=== PATIENT | female | born 1995 | race Asian ===

== ENCOUNTER 2017-06-14 22:00 | Observation (INO) | payer OTHER ==
[2017-06-15] MEDS ORDERED: NS 0.9% 1000 ML* 1,000 ML IV ONE (00:17)
[2017-06-15] MEDS ORDERED: Ondansetron INJ* 2 MG/ML VIAL IV ONE (00:17)
--- NOTE | 2017-06-15 00:27 | ED ---
Abdominal Pain/Female - HPI Summary HPI Summary: 22F w/ no PMH presents with epigastric pain and vomiting today. She states she has had pain before in this same location but it is more sharp in nature. She vomited three times with the last episode having some blood in it. She admits to nausea. She admits to a history of GERD but states feels different. She had chicken and rice for dinner at 5pm. She denies any blood in her stool. She denies any vaginal discharge, chest pain, SOB, dysuria, hematuria, flank pain, urgency, frequency, constipation or diarrhea. She denies any fevers. She did not eat anything out of the ordinary today. She denies any previous abdominal surgeries. She is on control. She has no medical conditions. last meal at 5pm. - History of Current Complaint Chief Complaint: EDNauseaVomitDiarrh Stated Complaint: BLOOD IN VOMIT Time Seen by Provider: 06/14/17 23:56 Pain Intensity: 8 Allergies/Adverse Reactions: Allergies Allergy/AdvReac Type Severity Reaction Status Date / Time Benzoyl Peroxide Allergy Intermediate Rash Verified 06/14/17 22:04 PMH/Surg Hx/FS Hx/Imm Hx Endocrine/Hematology History: Denies: Hx Anticoagulant Therapy Cardiovascular History: Denies: Hx Hypertension Infectious Disease History: No Infectious Disease History: Denies: Traveled Outside the [place] in Last 30 Days - Family History Known Family History: Positive: Other - IBS - Social History Alcohol Use: Occasionally Substance Use Type: Reports: None Smoking Status (MU): Never Smoked Tobacco Review of Systems Negative: Fever Negative: Chest Pain Negative: Shortness Of Breath Positive: Abdominal Pain - epigastric, Vomiting, Nausea. Negative: Diarrhea All Other Systems Reviewed And Are Negative: Yes Physical Exam Triage Information Reviewed: Yes Vital Signs On Initial Exam: Initial Vitals Temp Pulse Resp BP Pulse Ox 97.3 F 91 14 114/59 100 06/14/17 22:02 06/14/17 22:02 06/14/17 22:02 06/14/17 22:02 06/14/17 22:02 Vital Signs Reviewed: Yes Appearance: Positive: Well-Appearing Skin: Positive: Warm, Dry Head/Face: Positive: Normal Head/Face Inspection Eyes: Positive: Normal, EOMI, ANGUS, Conjunctiva Clear ENT: Positive: Normal ENT inspection, Pharynx normal, TMs normal Respiratory/Lung Sounds: Positive: Clear to Auscultation, Breath Sounds Present Cardiovascular: Positive: Normal, RRR Abdomen Description: Positive: Soft, Other: - tenderness epigastric region, neg pearson. Negative: CVA Tenderness (R), CVA Tenderness (L) Bowel Sounds: Positive: Present - [place] Coma Scale Coma Scale Total: 15 Diagnostics - Vital Signs Vital Signs Temp Pulse Resp BP Pulse Ox 06/14/17 23:59 86 100 06/14/17 22:02 97.3 F 91 14 114/59 100 - Laboratory Result Diagrams: 06/15/17 00:40 06/15/17 00:40 Lab Statement: Any lab studies that have been ordered have been reviewed, and results considered in the medical decision making process. - Ultrasound No standard instances Ultrasound Interpretation: Positive (See Comments) - cholelithiasis, sludge, thickened gallslbadder 5mm but no sonographic pearson signs or gallbladder enlargement to suggest acute cholecystitis. no biliary dilatation Ultrasound Interpretation Completed By: Radiologist Re-Evaluation - Re-Evaluation First Eval Re-Evaluation Time: 01:25 Change: Improved Comment: feeling better after toradol and zofran Abdominal Pain Fem Course/Dx - Course Course Of Treatment: 22F presents with epigastric pain and vomiting today. She states she has had pain before in this same location but it is more sharp in nature. She vomited three times with the last episode having some blood in it. She admits to nausea. She admits to a history of GERD but states feels different. She had chicken and rice for dinner at 5pm. She denies any blood in her stool. She denies any vaginal discharge, chest pain, SOB, dysuria, hematuria, flank pain, urgency, frequency, constipation or diarrhea. She denies any fevers. She did not eat anything out of the ordinary today. on exam moderate tender in epigastric region. no rebound. neg pearson. labs: wbc 14 with left shift. bilirubin 1.40, AST 98H, gallbladder u/s shows cholelithiasis, sludge and thickened gallbladder wall but no sonographic pearson sign of gallbladder enlargement to suggest acute cholecysitis. due to labs discussed with dr mary who recommends calling surgery. dr hunter recommends admission for remove gallbladder. discussed with patient who agrees to admission. had length discussion with father and discussed benefits of having surgery. - Diagnoses Differential Diagnosis: Positive: Gall Bladder Disease, Pancreatitis, Peptic Ulcer Disease Provider Diagnoses: Cholecystitis - Provider Notifications Discussed Care Of Patient With: dr hunter Time Discussed With Above Provider: 01:30 - recommends admission to have gallbladder removed Discharge - Discharge Plan Condition: Stable Disposition: ADMITTED TO [facility] Referrals: [facility] - John CHRISTENSEN [Primary Care Provider] -
[2017-06-15 00:54] LABS: Hematocrit 39 % (35-47); Hemoglobin 13.2 g/dl (12.0-16.0); Mean Corpuscular HGB Conc 34 g/dl (31-36); Mean Corpuscular Hemoglobin 29 pg (27-31); Mean Corpuscular Volume 86 fL (80-97); Mean Platelet Volume 9 um3 (7.4-10.4); Red Blood Count 4.54 10^6/ul (4.0-5.4); Red Cell Distribution Width 14 % (10.5-15)
[2017-06-15 01:14] LABS: ALT 51 U/L (7-52); AST 98 U/L (13-39); Albumin 4.6 g/dL (3.2-5.2); Alkaline Phosphatase 46 U/L (34-104); Anion Gap 7 mmol/L (2-11); BUN/Creatinine Ratio 23.9 (8-20); Blood Urea Nitrogen 17 mg/dL (6-24); CO2 Carbon Dioxide 25 mmol/L (22-32); Calcium 9.2 mg/dL (8.6-10.3); Chloride 103 mmol/L (101-111); EGFR African American 133.6 (>60); EGFR Non-African American 103.9 (>60); Globulin 2.9 g/dL (2-4); Glucose 124 mg/dL (70-100); Lipase 46 U/L (11.0-82.0); Potassium 3.7 mmol/L (3.5-5.0); Sodium 135 mmol/L (133-145); Total Protein 7.5 g/dL (6.4-8.9)
[2017-06-15] MEDS ORDERED: Ondansetron INJ* 2 MG/ML VIAL IV PRN (01:48)
[2017-06-15] MEDS ORDERED: Morphine INJ* 2 MG/ML 1 ML SYRINGE (TWO MG - NEW SYRINGE VERSION) IV PRN (01:48)
[2017-06-15] MEDS ORDERED: Acetaminophen TAB* 325 MG PO PRN (01:48)
[2017-06-15] MEDS ORDERED: Piperacillin/Tazobac (*) 3.375 GM ADDV.VIAL ONE (02:03)
[2017-06-15 02:13] LABS: Urine Bacteria Absent (Absent); Urine Bilirubin Negative (Negative); Urine Glucose Negative (Negative); Urine Nitrite Negative (Negative)
[2017-06-15] MEDS: NS 0.9% 1000 ML* 1,000 ML IV SCH ×3 (03:43→18:52)
[2017-06-15] MEDS: Pantoprazole IV* 40 MG IV SCH (04:20)
--- NOTE | 2017-06-15 08:23 | RAD ---
Indication: Epigastric pain. Vomiting. Comparison: No relevant prior exams available on the [facility] PACS for comparison. Technique: RIGHT upper quadrant ultrasound. Report: Appropriate direction flow documented in the portal and hepatic veins. 15.1 cm liver is normal in echogenicity. Negative for focal hepatic lesions. Negative for intrahepatic biliary dilatation. 4.6 mm common bile duct. Partially distended gallbladder is remarkable for biliary sludge and multiple shadowing stones. Thickened gallbladder wall measuring up to 5.1 mm with intramural sonolucencies. No definitive pericholecystic fluid. Negative for sonographic Mars's sign. The pancreatic tail is partially obscured due to bowel gas with the visualized pancreas unremarkable. Negative for ascites. 10.7 cm RIGHT kidney is unremarkable. IMPRESSION: Biliary sludge, cholelithiasis, and significant wall thickening. Negative for gallbladder distention, pericholecystic fluid, or sonographic Mars's sign to favor acute cholecystitis.
--- NOTE | 2017-06-15 15:32 | HP ---
CC: [facility]; [facility]* HISTORY AND PHYSICAL ADMISSION: DATE OF ADMISSION: 06/15/17 CHIEF COMPLAINT: Epigastric and right upper quadrant abdominal pain with nausea and vomiting. HISTORY OF PRESENT ILLNESS: Ms. 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 She subsequently developed some fairly severe epigastric discomfort that she described as sharp and stabbing. This was associated with nausea and vomiting. There was a small amount of blood in the vomitus and that prompted her to present to the emergency room. She has had no fever, shakes, or chills. She had no lower abdominal pain or diarrhea. Pain did not radiate to her back. Over the past year or so, she gives a history of similar discomfort that started after eating larger meals in the epigastrium and right upper quadrant, which lasted 12 hours associated with nausea. However, the discomfort in the past was not as severe as what brought her to the emergency room, thus prompting her visit. She has noted no jaundice. She has had no shakes or chills. She has had no change in the color of her urine or stool. In the emergency room last night, she was noted to be afebrile, although subsequently had a temperature of 100.0 shortly after being seen. Her white blood cell count noted to be 14,000 with increased absolute neutrophils. Electrolytes, BUN and creatinine were within normal limits. She had a total bilirubin of 1.4 with AST and ALT of 98 and 51. Beta hCG was negative. Lipase was normal. Ultrasound of her gallbladder was performed. I did review these images. This showed biliary sludge with a partially distended gallbladder with multiple shadowing stones and a thickened gallbladder wall up to 5 mm with intramural sinal lucencies. There did not appear to be Mars sign, however. There was no definitive pericholecystic fluid. These findings were felt to be worrisome for acute calculus cholecystitis. In light of her worsening and more severe symptoms and her history and findings on the ultrasound as well as the leukocytosis, she was admitted to the surgical service for further care. PAST MEDICAL HISTORY: Seasonal allergies. PAST SURGICAL HISTORY: None. MEDICATIONS: Include; 1. Oral contraceptives Junel daily. 2. Singulair 5 mg p.o. daily. 3. Albuterol 2 puffs inhaled p.r.n. ALLERGIES: She is allergic to [employer]. SOCIAL HISTORY: She does not smoke. Drinks alcohol on social basis. She is a [employer] senior. She is from [place], [place]. REVIEW OF SYSTEMS: Cerebrovascular: No dizziness or visual disturbances. Cardiovascular: No chest pain, shortness of breath. Pulmonary: No wheezing or hemoptysis recently. She does have seasonal asthma, mainly bothering her more in the winter. GI: As per above. She has had some chronic intermittent abdominal pain. This may occur every 2 to 3 weeks and be quite severe. She has never sought care for this in the past. : No urgency or menstrual abnormalities. She is on a oral contraceptive. PHYSICAL EXAMINATION GENERAL: She is a slender female with normal attention to grooming and awake, alert, and conversive. VITAL SIGNS: Temperature 98, pulse 74, blood pressure 113/71. HEENT: Sclerae anicteric. Oral mucous is slightly dry. LUNGS: Clear to auscultation with normal respiratory effort. HEART: Regular rate and rhythm without murmurs, rubs, or gallops. ABDOMEN: Soft, nondistended. There are no prior surgical incisions. She has diminished bowel sounds throughout. She has some mild tenderness in the epigastric and right upper quadrant without mass, rebound or guarding. There is no back or flank discomfort. PSYCHIATRIC: She is awake, alert, and oriented x3. She has normal judgment and insight. IMPRESSION: Acute calculus cholecystitis with history of typical biliary tract symptoms with a history typical of cholelithiasis over the past year. Her symptoms seemed to have worsened and presently has a leukocytosis as well as an ultrasound concerning for acute calculus cholecystitis. 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 PLAN: After discussing the above findings with her, we have admitted her for treatment with intravenous antibiotics. I discussed cholecystectomy with her and I think she does have acute calculus cholecystitis. She would like to try to avoid surgery at this point and this certainly may be a reasonable option depending on her clinical course over the next 24 hours. We discussed the treatment of cholecystitis with IV and subsequent oral antibiotics if she improved with discussion of an interval cholecystectomy, which could be done at her winter break. Our plan will be to treat with IV antibiotics today and see how she does. She can have clear liquids. I will repeat a white blood cell count in the morning. If she is improving and can tolerate liquids and her pain resolves, she can be discharged home with oral antibiotics with closed followup with the understanding that if symptoms worsened or not completely resolved in the next several weeks, she would require surgical intervention. If she would improve, we could consider delayed cholecystectomy most likely at home in [facility] over her winter break or sooner as needed. Therefore plan : 1. She has been admitted to the surgical service. 2. She has been started on IV Zosyn. 3. She can have clear liquids tonight, we will keep her n.p.o. after midnight. 4. I am tentatively going to place her on the operating room schedule for tomorrow. I discussed the procedure of laparoscopic cholecystectomy with her and the risks but not limited to bleeding, infection, open procedure, intra- abdominal abscess formation, injury to peritoneal and retroperitoneal structures , common bile duct injury requiring further reconstruction and the risk of anesthesia and recovery times were all explained. I will discuss this with her parents who may be coming to [place] later this afternoon or tomorrow morning as well. [id number]/[facility] #: [id number] MY
[2017-06-15] MEDS ORDERED: Albuterol HFA INHALER* 8 gm MDI INH PRN (17:15)
[2017-06-15] MEDS ORDERED: NORETHINDRONE PO SCH (19:00)
[2017-06-15] MEDS ORDERED: ETH EST PO SCH (19:00)
[2017-06-16] MEDS: Pantoprazole IV* 40 MG IV SCH (02:01)
[2017-06-16] MEDS: NS 0.9% 1000 ML* 1,000 ML IV SCH (02:57)
[2017-06-16 06:09] LABS: Hematocrit 33 % (35-47); Hemoglobin 10.8 g/dl (12.0-16.0); Mean Corpuscular HGB Conc 33 g/dl (31-36); Mean Corpuscular Hemoglobin 29 pg (27-31); Mean Corpuscular Volume 88 fL (80-97); Mean Platelet Volume 9 um3 (7.4-10.4); Red Blood Count 3.73 10^6/ul (4.0-5.4); Red Cell Distribution Width 14 % (10.5-15); White Blood Count 6.4 10^3/ul (3.5-10.8)
[2017-06-16 06:28] LABS: Albumin 3.2 g/dL (3.2-5.2); BUN/Creatinine Ratio 6.6 (8-20); Direct Bilirubin 0.2 mg/dL (0.03-0.18); EGFR African American 123.5 (>60); EGFR Non-African American 96.1 (>60); Indirect Bilirubin 0.4 mg/dL (0.3-1.0); Potassium 3.3 mmol/L (3.5-5.0); Total Bilirubin 0.6 mg/dL (0.2-1.0); Total Protein 5.2 g/dL (6.4-8.9)
[2017-06-16] MEDS ORDERED: Montelukast Sodium TAB* 5 MG PO SCH (09:00)
[2017-06-16 11:39] VITALS: BP 120/76
--- NOTE | 2017-06-16 12:11 | PN ---
Progress Note - Progress Note Date of Service: 06/16/17 SOAP: Subjective: Her pain has resolved and she is hungry She slept well last night. She would like to eat Objective: Temp Pulse Resp BP Pulse Ox 98.3 F 74 20 120/76 100 06/16/17 11:09 06/16/17 11:09 06/16/17 11:09 06/16/17 11:09 06/16/17 11:09 Intake & Output 06/14/17 06/15/17 06/16/17 06/17/17 06:59 06:59 06:59 06:59 Intake Total 2096 3515 2619 Output Total 2850 1425 Balance 2096 665 1194 Weight 118 lb 118 lb Intake: IV Fluids 2096 2188 2017 ABX - ZOSYN 105 NS (0.9%) 85 991 1009 IVPB 106 106 ABX - ZOSYN 106 Oral 0 1220 495 Output: Urine 2850 1425 PEX: Comfortable Lungs are clear Cor is RRR ABd is soft and non-distended. Bowel sounds are present. There is no tenderness or guarding, no mass noted. Laboratory Results - last 24 hr 06/16/17 06/16/17 05:49 05:49 WBC 6.4 RBC 3.73 L Hgb 10.8 L Hct 33 L MCV 88 MCH 29 MCHC 33 RDW 14 Plt Count 185 MPV 9 Neut % (Auto) 52.5 Lymph % (Auto) 37.7 Riley % (Auto) 6.8 Eos % (Auto) 2.5 Baso % (Auto) 0.5 Absolute Neuts (auto) 3.4 Absolute Lymphs (auto) 2.4 Absolute Monos (auto) 0.4 Absolute Eos (auto) 0.2 Absolute Basos (auto) 0 Absolute Nucleated RBC 0 Nucleated RBC % 0 Sodium 137 Potassium 3.3 L Chloride 110 Carbon Dioxide 24 Anion Gap 3 BUN 5 L Creatinine 0.76 Est GFR ( Amer) 123.5 Est GFR (Non-Af Amer) 96.1 BUN/Creatinine Ratio 6.6 L Glucose 78 Calcium 8.0 L Total Bilirubin 0.60 Direct Bilirubin 0.20 H Indirect Bilirubin 0.4 AST 58 H ALT 87 H Alkaline Phosphatase 38 Total Protein 5.2 L Albumin 3.2 Globulin 2.0 Albumin/Globulin Ratio 1.6 Assessment: Acute calculous cholecystitis. Normal WBC today, normal LFT's She is afebrile and is having no further pain. Plan: I discussed at length with her and her parents at the bedside this morning the findings of her workup and treatment so far. I feel she has acute calculous cholecystitis that is responding to IV antibiotics nicely. I explained to them that usually the recommended treatment at this point would be laparoscopic cholecystectomy today for definitive treatment. However, she is a senior at [employer] and she inquired about non-operative management with antibiotics with the hope that she could postpone her surgery until a time that is better for her. This is also an acceptable course of treatment especially since she has improved and her WBC has returned to normal. After our discussion of the pros and cons of non-operative management she would like to try treatment with oral antibiotics and discharge with close follow up. I think this is a reasonable and accepted course of treatment and I discussed the risks of worsening, risks of usp antibiotics, and the possibility that antibiotics may not adequately treat her condition and she may need surgery in the next several weeks. She is aware of this and accepts this possibility. I also discussed the risks and benefits of surgery. We will give her lunch and make sure she tolerates po and plan discharge this afternoon with office follow up and 10 days of oral Augmentin.
--- NOTE | 2017-06-17 03:10 | DS ---
Amended report to enter cosigning physician on report. CC: [facility]; [facility]* DISCHARGE SUMMARY: DATE OF ADMISSION: 06/15/17 DATE OF DISCHARGE: 06/16/17 PATIENT OF: Dr. Arley Schmidt* (dictated by BOSSMAN Jiang). ADMISSION DIAGNOSIS: Acute cholecystitis. DISCHARGE DIAGNOSIS: Acute cholecystitis. ADMITTING PHYSICIAN: Arley Schmidt MD CONSULTATIONS: None. PROCEDURES: None. 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 She states that her pain started in a couple of hours after she had dinner, developed some fairly severe epigastric discomfort, described it as being sharp and stabbing. She had also associated nausea and vomiting with small amount of blood in that vomit. She went to the emergency room for evaluation and had an ultrasound that reveals evidence of acute cholecystitis as well as leukocytosis with white count of 14,000. Given her ongoing symptoms, she was admitted for observation and to discuss a possible gallbladder surgery. HOSPITAL COURSE: The patient was admitted under surgical services. Her laboratory workup revealed slight elevation in her total bilirubin with value of 1.4 with normal ALT and AST. Ultrasound of her gallbladder showed thickened gallbladder wall as well as multiple gallbladder stones. She did not appear to have Mars sign on exam, but there was also some pericholecystic fluid noted. The patient was started empirically on antibiotics and Dr. Schmidt discussed with her proceeding with surgery on the following day. 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 On the following morning, she was afebrile. She was ambulatory out of bed and tolerating clear liquid. She opted not to proceed with surgery at this time and we will cover her empirically with oral antibiotics using Augmentin 875 mg b.i.d. until seen in the office in the next 1 to 2 weeks for a followup. We also stressed with her the importance of seeking medical help or returning to our office if she experience any discomfort again. We also discussed low fat diet until we scheduled her electively for gallbladder surgery after her final exams. The patient will be discharged to home in stable condition. DISCHARGE MEDICATIONS: Include: 1. Singulair 5 mg p.o. daily. 2. Albuterol inhaler 2 puffs q.4 hours p.r.n. for shortness of breath. 3. Oral contraceptive Junel 1 tablet daily. 4. Augmentin 875 mg 1 tablet b.i.d. for the next 10 days. PROBLEM LIST: Acute cholecystitis. The patient is clinically improving and will be discharged home on antibiotics and hoping to schedule gallbladder surgery electively in the near future. BOSSMAN NOEL [id number]/[facility] #: [id number] MTDLazara
== END 2017-06-16 14:35 | disposition home or self-care (01) ==
LOC: ED 22:00 → SSU 06-15 01:48
PROVIDERS: ADMIT Surgery; ATTEND Surgery
DX: K81.0 Acute cholecystitis (principal); R10.13 Epigastric pain
CPT/HCPCS: 36415; 76705; 80048; 80053; 80076; 81003; 81015; 83690; 84702; 85025; 86141; 87077; 87086; 96365; 96366; 96375; 99284; A9270-GY; G0378; J2405; J2543